=== PATIENT | female | born 1980 | race Caucasian/White ===

== ENCOUNTER 2020-07-10 17:57 | Emergency (ER) | payer OTHER ==
[2020-07-10] MEDS ORDERED: KETOROLAC 15 MG/ML 1 ML VIAL IM STA (18:50)
[2020-07-10] MEDS ORDERED: ORPHENADRINE 30 MG/ML 2 ML VIAL IM STA (18:50)
[2020-07-10] MEDS ORDERED: LIDOCAINE 5% PATCH TOPICAL STA (18:57)
--- NOTE | 2020-07-10 19:24 | ED ---
General Adult HPI - General Chief complaint: Fall Stated complaint: fall, rib injury Time Seen by Provider: 07/10/20 18:21 Source: patient Mode of arrival: ambulatory Limitations: no limitations - History of Present Illness Initial comments: 40-year-old female presents to the emergency Department with complaints of right lateral and posterior rib pain status post fall off of a trampoline 12 days ago. Patient states she struck the affected area on a step stool that was at ground level. Reports some shortness of breath with activity worsening the last 2 days. Also states she feels as if she cannot take a full deep breath. Patient reports taking Motrin at noon today with minimal improvement in discomfort. Patient denies any headache, neck pain, back pain, chest pain, dizziness, weakness, abdominal pain, nausea, vomiting, or difficulties with urination. - Related Data Home Medications Medication Instructions Recorded Confirmed Ibuprofen [Motrin] 400 mg PO ONCE PRN 07/10/20 07/10/20 Sertraline HCl [Zoloft] 100 mg PO DAILY 07/10/20 07/10/20 Previous Rx's Medication Instructions Recorded Cyclobenzaprine [Flexeril] 10 mg PO TID #15 tab 07/10/20 Hydrocodone/Acetaminophen [[place] 1 tab PO Q6HR PRN #12 tab 07/10/20 5-325] Lidocaine 5% Patch [Lidoderm] 1 patch TOPICAL DAILY #30 patch 07/10/20 Allergies Allergy/AdvReac Type Severity Reaction Status Date / Time No Known Allergies Allergy Verified 07/10/20 19:03 Review of Systems ROS Statement: Those systems with pertinent positive or pertinent negative responses have been documented in the HPI. ROS Other: All systems not noted in ROS Statement are negative. Past Medical History Past Medical History: No Reported History History of Any Multi-Drug Resistant Organisms: None Reported Past Surgical History: No Surgical Hx Reported Past Psychological History: Anxiety Smoking Status: Never smoker Past Alcohol Use History: None Reported Past Drug Use History: None Reported General Exam Limitations: no limitations (Well-developed, well-nourished female in no acute distress. Initial temperature 98.3F, pulse 90, respirations 18, blood pressure 134/90, pulse ox 99% on room air.) General appearance: alert, in no apparent distress Neck exam: Present: normal inspection. Absent: tenderness, meningismus, lymphadenopathy Respiratory exam: Present: normal lung sounds bilaterally, chest wall tenderness (Right posterior and lateral rib tenderness upon palpation; no step off or subcutaneous emphysema). Absent: respiratory distress, wheezes, accessory muscle use Cardiovascular Exam: Present: regular rate, normal rhythm, normal heart sounds. Absent: systolic murmur, diastolic murmur, rubs, gallop, clicks GI/Abdominal exam: Present: soft, normal bowel sounds. Absent: distended, tenderness, guarding, rebound, rigid Back exam: Present: muscle spasm (posteriolateral lower border right rib). Absent: vertebral tenderness Neurological exam: Present: alert, oriented X3, CN II-XII intact Psychiatric exam: Present: normal affect, normal mood Skin exam: Present: warm, dry, intact, normal color. Absent: rash Course Vital Signs 07/10/20 18:13 Temperature 98.3 F Pulse Rate 90 Respiratory 18 Rate Blood Pressure 134/90 O2 Sat by Pulse 99 Oximetry Medical Decision Making - Medical Decision Making 30-year-old female presents to the emergency Department with complaints of right medial and posterolateral rib pain status post fall from a trampoline 12 days ago. States the last few days she has experienced increased shortness of breath with activity and is having difficulty finding a position of comfort to sleep and at night. States Motrin she took earlier in the day has provided her minimal relief and she is experiencing an increased number of muscle spasms. Physical exam is negative for obvious deformity, contusion, or subcutaneous emphysema. States it is difficult to take a deep breath. Right rib x-ray was obtained with PA chest, no findings of acute rib fracture or cardiopulmonary process. Patient was given Norflex and Toradol IM, and a lidocaine patch was applied. Prescribed [place], Flexeril, and a Lidoderm patch to manage her pain at home. Findings were discussed with patient. Instructed to follow-up with primary care provider in the next 1-2 days for recheck. Return parameters were discussed in detail. Patient verbalizes understanding and agrees with this plan. - Radiology Data Radiology results: report reviewed X-ray of the right ribs with PA chest was obtained. Report was reviewed in its entirety. Impression per Dr. Glasgow is no cardiopulmonary disease. No rib fracture seen. Disposition Clinical Impression: Muscle spasm, Contusion of rib on right side Disposition: HOME SELF-CARE Condition: Good Instructions (If sedation given, give patient instructions): How to Use an Incentive Spirometer (ED), Muscle Spasm (ED), Rib Contusion (ED) Additional Instructions: Use incentive spirometry as directed. Take Flexeril as needed for muscle spasms and and [place] for more severe pain. May continue to take Motrin as needed for [id number] pain. Follow-up with your primary care provider for recheck in 1-2 days. Return to emergency department with any new, worsening, or concerning symptoms. Prescriptions: Cyclobenzaprine [Flexeril] 10 mg PO TID #15 tab Lidocaine 5% Patch [Lidoderm] 1 patch TOPICAL DAILY #30 patch Hydrocodone/Acetaminophen [[place] 5-325] 1 tab PO Q6HR PRN #12 tab PRN Reason: Pain Is patient prescribed a controlled substance at d/c from ED?: Yes When asked, does pt state using other controlled substances?: No If prescribed controlled substance>3 days was MAPS reviewed?: Prescribed <3 Days If opioid is for acute pain is fill amount 7 days or less?: Yes If Rx opioid, was Start Talking consent form obtained?: Yes Referrals: Zahraa Redd DO [Primary Care Provider] - 1-2 days Time of Disposition: 20:45
--- NOTE | 2020-07-10 19:42 | XR ---
EXAMINATION TYPE: XR ribs RT w pa chest xray DATE OF EXAM: 07/10/2020 COMPARISON: NONE HISTORY: Rib pain TECHNIQUE: 5 views FINDINGS: Heart and mediastinum are normal. Lungs are clear of consolidation. There are no hilar mass es. The right ribs appear intact. There is no pleural effusion or pneumothorax. There are bilateral breast implants. IMPRESSION: No cardiopulmonary disease. No rib fracture seen.
[2020-07-10 21:03] VITALS: BP 127/69; PULSE 79; RESP 16; TEMP 98.2
== END 2020-07-10 21:02 | disposition home or self-care (01) ==
LOC: EC 17:57
DX: S20.211A Contusion of right front wall of thorax, initial encounter (principal); M62.838 Other muscle spasm; R06.02 Shortness of breath; F41.9 Anxiety disorder, unspecified; Z79.899 Other long term (current) drug therapy; W09.8XXA Fall on or from other playground equipment, initial encounter; Y93.44 Activity, trampolining; Y92.89 Other specified places as the place of occurrence of the external cause
CPT/HCPCS: 71101; 99283; 96372 ×2; J2360; J1885